=== PATIENT | female | born 1970 | race Caucasian/White ===

== ENCOUNTER 2022-04-09 10:07 | Outpatient (CLI) | payer BC, SELFPAY | END 2022-04-09 10:08 | disposition home or self-care (01) | PROVIDERS: Visit Provider Family Medicine | DX: M54.16 Radiculopathy, lumbar region (principal) | CPT/HCPCS: 64483; J1100; Q9966 ==

== ENCOUNTER 2022-07-30 09:25 | Outpatient (CLI) | payer BC, SELFPAY ==
--- OUTSIDE RECORDS SUMMARY | 2022-07-30 09:34 | XMS_ITS | Continuity of Care Document ---
Author Name Unknown Organization [facility] Address [address] [place] [address]- Care Team Providers Care Admitting Officer Name Role Phone Clyde Jaquez Primary Care Physician Encounter 03/05/21 - 03/05/21 [facility] [address] [place] [address]- Discharge Disposition: Discharged to Home or Self Care Attending Physician: Bindu METZGER, Linnette Nunez Allergies, Adverse Reactions, Alerts Substance Reaction Severity Status penicillins Active Medications atorvastatin 40 mg oral tablet Take 1 Tab, PO, Daily, # 90 Tab, 3 Refill(s), Pharmacy: [facility] Start Date: 12/18/20 Status: Ordered CONTOUR COLTEN NEXT CONTOUR COLTEN NEXT, testing 4-5, Each, 0 Start Date: 08/26/19 Status: Ordered fluconazole 150 mg oral tablet Take 1 Tab, PO, Once, take one tablet once a week for yeast infection while taking Jardiance, # 30 Tab, 11 Refill(s), Pharmacy: [facility] Start Date: 03/28/20 Status: Ordered Jardiance 10 mg oral tablet Take 1 Tab, PO, QAM, # 90 Each, 11 Refill(s), Pharmacy: [facility] Start Date: 05/01/20 Status: Ordered Linzess 72 mcg oral capsule Take 1 Cap, PO, Daily, Each, 0 Refill(s) Start Date: 08/26/19 Status: Ordered lisinopril 20 mg oral tablet Take 1 Tab, PO, Daily, # 90 Each, 3 Refill(s), Pharmacy: [facility] Start Date: 10/02/20 Status: Ordered NovoLOG 100 units/mL injectable solution See Instructions, Subcut ac via pump max 75 units per day, # 3 Each, 11 Refill(s), [facility] Start Date: 05/01/20 Status: Ordered topiramate 25 mg oral tablet TAKE ONE TABLET BY MOUTH TWICE A DAY EVERY MORNING AND EVERY EVENING Start Date: 05/01/20 Status: Ordered Procedures Procedure Date Related Diagnosis Body Site Status Hysterectomy 1 Completed 1partial Results Laboratory List Name Date Basic Metabolic Panel (BASIC METABOLIC P NL) 03/05/21 CBC 03/05/21 Sodium Level Most recent to oldest [Reference Range]: 1 Sodium Level [133-146 mMol/L] 138 mMol/L (03/05/21 3:15 PM) Potassium Level Most recent to oldest [Reference Range]: 1 Potassium Level [3.5-5.1 mMol/L] 4.5 mMo l/L (03/05/21 3:15 PM) Chloride Level Most recent to oldest [Reference Range]: 1 Chloride Level [97-109 mMol/L] 104 mMol/ L (03/05/21 3:15 PM) Carbon Dioxide Level Most recent to oldest [Reference Range]: 1 Carbon Dioxide Level [20-34 mMol/L] 25 m Mol/L (03/05/21 3:15 PM) BUN Most recent to oldest [Reference Range]: 1 BUN [8-22 mg/dL] 15 mg/dL (03/05/21 3:15 PM) Creatinine Most recent to oldest [Reference Range]: 1 Creatinine [0.6-1.2 mg/dL] 0.65 mg/dL (03/05/21 3:15 PM) Calcium Total Most recent to oldest [Reference Range]: 1 Calcium Total [8.6-10.3 mg/dL] 9.1 mg/dL (03/05/21 3:15 PM) Glucose Level Most recent to oldest [Reference Range]: 1 Glucose Level [70-110 mg/dL] 82 mg/dL (03/05/21 3:15 PM) WBC Count Most recent to oldest [Reference Range]: 1 WBC Count [4.5-11.0 X10 3/uL] 10.07 X10 3/uL (03/05/21 3:15 PM) Hemoglobin Most recent to oldest [Reference Range]: 1 Hemoglobin [11.7-16.0 gm/dL] 14.2 gm/dL (03/05/21 3:15 PM) Hematocrit Most recent to oldest [Reference Range]: 1 Hematocrit [35-47 %] 42.9 % (03/05/21 3:15 PM) Platelet Count Most recent to oldest [Reference Range]: 1 Platelet Count [150-440 X10 3/uL] 326 X1 0 3/uL (03/05/21 3:15 PM) Social History Social History Type Response Sex
--- OUTSIDE RECORDS SUMMARY | 2022-07-30 09:34 | XMS_ITS | Continuity of Care Document ---
Author Name Unknown Organization [facility] Address [address] [place] [address]- Care Team Providers Care Eyeglass Maker Name Role Phone Clyde Jaquez Primary Care Physician [phone] Encounter 04/19/21 - 04/19/21 [facility] [address] [place] [address]- Discharge Disposition: Discharged to Home or Self Care Attending Physician: Carroll KIRKLAND, Leo Edgar Allergies, Adverse Reactions, Alerts Substance Reaction Severity Status erythromycin nausea Active penicillins Active Immunizations Given and Recorded Vaccine Date Status Refusal Reason SARS-CoV-2 (COVID-19) MODERNA 02/22/21 Recorded SARS-CoV-2 (COVID-19) MODERNA 05/16/20 Recorded SARS-CoV-2 (COVID-19) MODERNA 04/17/20 Recorded influenza virus vaccine 01/27/20 Recorded influenza virus vaccine 01/25/19 Recorded influenza virus vaccine 02/20/18 Recorded influenza virus vaccine 03/07/17 Recorded influenza virus vaccine 01/03/16 Recorded influenza virus vaccine 05/05/15 Recorded influenza virus vaccine 01/20/13 Recorded influenza virus vaccine 02/20/11 Recorded tetanus-diphtheria toxoids 02/21/05 Recorded measles/mumps/rubella virus vaccine 03/08/87 Recor ded Medications atorvastatin 40 mg oral tablet Take 1 Tab, PO, Daily, # 90 Tab, 3 Refill(s), [facility] Start Date: 12/18/20 Status: Ordered CONTOUR COLTEN NEXT CONTOUR COLTEN NEXT, testing 4-5, Each, 0 Start Date: 08/26/19 Status: Ordered fluconazole 150 mg oral tablet Take 1 Tab, PO, Once, take one tablet once daily as needed for yeast infection while taking Jardiance 5 days in succession Max 10 days/month, # 30 Tab, 11 Refill(s), Pharmacy: [facility], 173, cm, 03/19/21 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, Height, 99.7, kg, 03/19/21 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, Weight Start Date: 03/22/21 Status: Ordered Linzess 72 mcg oral capsule Take 1 Cap, PO, Daily, Each, 0 Refill(s) Start Date: 08/26/19 Status: Ordered lisinopril 20 mg oral tablet Take 1 Tab, PO, Daily, # 90 Each, 3 Refill(s), Pharmacy: [facility] Start Date: 10/02/20 Status: Ordered NovoLOG 100 units/mL injectable solution See Instructions, Subcut ac via pump max 75 units per day, # 3 Each, 11 Refill(s), Pharmacy: [facility], 173, cm, 03/19/21 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, Height, 99.7, kg, 03/19/21 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, Weight Start Date: 03/22/21 Status: Ordered topiramate 25 mg oral tablet Take 1 Tab, PO, QPM Start Date: 05/01/20 Status: Ordered topiramate 50 mg oral tablet Take 1 Tab, PO, Daily, AM, Each Start Date: 03/12/21 Status: Ordered Problem List Condition Effective Dates Status Health Status Inform ant Diabetes(Confirmed) Active patie nt Procedures Procedure Date Related Diagnosis Body Site Status Coronary angiogram 1 03/19/21 Comp leted Left ventriculogram 2 03/19/21 Com pleted delivery Complet ed Cyst 3 Completed Hysterectomy 4 Completed 1Mynx used for right femoral artery hemostasis 2Mynx used for right femoral artery hemostasis 3L. wrist 4partial Social History Social History Type Response Smoking Status Never smoked Sex Medical Equipment Implanted Date:03/19/21Target Site:Unknown Description Quantity MRI Company Model DEVICE VASC CLOSURE MYNX VCD 6F 7F [id number] 1 [facility]- ACCES S CLOSURE Unknown JOEL:{[id number] Assigning Authority:FDA
--- OUTSIDE RECORDS SUMMARY | 2022-07-30 09:34 | XMS_ITS | Referral Summary ---
Author Name Unknown Organization [facility] Address [address] [place] [address]- Care Team Providers Care Engineer Steam Name Role Phone Clyde Jaquez Primary Care Physician Az Adamson Primary Care Physician [phone] Monserrat Polanco Primary Care Physician Clyde Jaquez Primary Care Physician Monserrat Polanco Primary Care Physician [phone] Clyde Jaquez Primary Care Physician Physician, PCP Unknown Primary Care Physician Un available Clyde Jaquez Primary Care Physician [phone] Physician, PCP Unknown Primary Care Physician Un available Encounter 07/03/17 - 07/03/17 [facility] [address] [place] [address]- [facility] Discharge Disposition: Discharged to Home or Self Care Attending Physician: Clyde Jaquez MD Allergies, Adverse Reactions, Alerts Substance Reaction Severity Status penicillins Active Medications aspirin Each, 0 Refill(s) Start Date: 05/26/14 Status: Ordered Belviq 10 mg oral tablet Take 1 Tab, PO, Each, 0 Refill(s) Start Date: 05/26/14 Status: Ordered Linzess 145 mcg oral capsule Take 1 Cap, PO, Daily, Each, 0 Refill(s) Start Date: 05/26/14 Status: Ordered lisinopril 20 mg oral tablet Take 1 Tab, PO, Daily, # 30 Tab, 0 Refill(s) Start Date: 05/26/14 Status: Ordered phentermine PO, Each, 0 Refill(s) Start Date: 05/26/14 Status: Ordered simvastatin 40 mg oral tablet Take 1 Tab, PO, QBedtime, # 30 Tab, 0 Refill(s) Start Date: 05/26/14 Status: Ordered Topamax 50 mg oral tablet Take 1 Tab, PO, Daily, Each, 0 Refill(s) Start Date: 05/26/14 Status: Ordered Procedures Procedure Date Related Diagnosis Body Site Status Hysterectomy 1 Completed 1partial Social History Social History Type Response
--- OUTSIDE RECORDS SUMMARY | 2022-07-30 09:34 | XMS_ITS | Continuity of Care Document ---
Author Name Unknown Organization [facility] Address [address] [place] [address]- Care Team Providers Care Education Professional Name Role Phone Clyde Jaquez Primary Care Physician Encounter 09/10/19 - 09/10/19 [facility] [address] [place] [address]- [facility] Discharge Disposition: Discharged to Home or Self Care Attending Physician: Antolin KIRKLAND, Alicia Thompson Allergies, Adverse Reactions, Alerts Substance Reaction Severity Status penicillins Active Medications aspirin 81 mg, PO, Daily, Each, 0 Refill(s) Start Date: 05/26/14 Status: Ordered atorvastatin 40 mg oral tablet Take 1 Tab, PO, Daily, # 90 Tab, 0 Refill(s), Pharmacy: [facility] Start Date: 08/26/19 Status: Ordered CONTOUR COLTEN NEXT CONTOUR COLTEN NEXT, testing 4-5, Each, 0 Start Date: 08/26/19 Status: Ordered fluconazole 150 mg oral tablet Take 1 Tab, PO, Once, take one tablet once a week for yeast infection while taking Jardiance, # 30 Tab, 0 Refill(s), Pharmacy: [facility] Start Date: 09/07/19 Status: Ordered Jardiance 10 mg oral tablet Take 1 Tab, PO, QAM, # 90 Each, 11 Refill(s), Pharmacy: [facility] Start Date: 08/26/19 Status: Ordered Linzess 72 mcg oral capsule Take 1 Cap, PO, Daily, Each, 0 Refill(s) Start Date: 08/26/19 Status: Ordered lisinopril 20 mg oral tablet Take 1 Tab, PO, Daily, # 90 Each, 11 Refill(s), Pharmacy: [facility] Start Date: 08/26/19 Status: Ordered NovoLOG 100 units/mL injectable solution See Instructions, Subcut ac via pump max75 units per day, # 3 Each, 11 Refill(s), Pharmacy: [facility] Start Date: 08/26/19 Status: Ordered phentermine 37.5 mg, PO, Daily, Each, 0 Refill(s) Start Date: 05/26/14 Status: Ordered Topamax 50 mg oral tablet Take 1 Tab, PO, Daily, # 30 Each, 2 Refill(s), Pharmacy: [facility], 1 Tab PO Daily Start Date: 09/07/19 Status: Ordered Procedures Procedure Date Related Diagnosis Body Site Status Hysterectomy 1 Completed 1partial Social History Social History Type Response Sex
--- OUTSIDE RECORDS SUMMARY | 2022-07-30 09:34 | XMS_ITS | Continuity of Care Document ---
Author Name Unknown Organization [facility] Address [address] [place] [address]- Care Team Providers Care Tenter Feeder Name Role Phone Clyde Jaquez Primary Care Physician Encounter 02/12/21 - 02/12/21 [facility] [address] [place] [address]- Encounter Diagnosis Chest pain, unspecified(Final) - Discharge Disposition: Discharged to Home or Self Care Attending Physician: Antolin KIRKLAND, Alicia Thompson Allergies, Adverse Reactions, Alerts Substance Reaction Severity Status penicillins Active Medications atorvastatin 40 mg oral tablet Take 1 Tab, PO, Daily, # 90 Tab, 3 Refill(s), Pharmacy: [facility] Start Date: 12/18/20 Status: Ordered CONTOUR COLTEN NEXT CONTOUR COLTEN NEXT, testing 4-5, Each, 0 Start Date: 08/26/19 Status: Ordered fluconazole 150 mg oral tablet Take 1 Tab, PO, Once, take one tablet once a week for yeast infection while taking Jardiance, # 30 Tab, 11 Refill(s), Pharmacy: [facility] Start Date: 03/28/20 Status: Ordered Jardiance 10 mg oral tablet Take 1 Tab, PO, QAM, # 90 Each, 11 Refill(s), Pharmacy: [facility] Start Date: 05/01/20 Status: Ordered Linzess 72 mcg oral capsule Take 1 Cap, PO, Daily, Each, 0 Refill(s) Start Date: 08/26/19 Status: Ordered lisinopril 20 mg oral tablet Take 1 Tab, PO, Daily, # 90 Each, 3 Refill(s), Pharmacy: [facility] Start Date: 10/02/20 Status: Ordered NovoLOG 100 units/mL injectable solution See Instructions, Subcut ac via pump max 75 units per day, # 3 Each, 11 Refill(s), Pharmacy: [facility] Start Date: 05/01/20 Status: Ordered topiramate 25 mg oral tablet TAKE ONE TABLET BY MOUTH TWICE A DAY EVERY MORNING AND EVERY EVENING Start Date: 05/01/20 Status: Ordered Procedures Procedure Date Related Diagnosis Body Site Status Hysterectomy 1 Completed 1partial Social History Social History Type Response Sex
--- OUTSIDE RECORDS SUMMARY | 2022-07-30 09:34 | XMS_ITS | Continuity of Care Document ---
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
--- OUTSIDE RECORDS SUMMARY | 2022-07-30 09:34 | XMS_ITS | Continuity of Care Document ---
Author Name Unknown Organization [facility] Address [address] [place] [address]- Care Team Providers Care Cement Kiln Operator Name Role Phone Clyde Jaquez Primary Care Physician [phone] Encounter 03/17/21 - 03/17/21 [facility] [address] [place] [address]- Discharge Disposition: Discharged to Home or Self Care Attending Physician: Aminah Dey DO Allergies, Adverse Reactions, Alerts Substance Reaction Severity [...] Daily, # 90 Tab, 3 Refill(s), Pharmacy: [facility] Start Date: 12/18/20 Status: Ordered CONTOUR COLTEN NEXT CONTOUR COLTEN NEXT, testing 4-5, Each, 0 Start Date: 08/26/19 Status: Ordered fluconazole 150 mg oral tablet Take 1 Tab, PO, Once, take one tablet once a week for yeast infection while taking Jardiance, # 30 Tab, 11 Refill(s), Pharmacy: [facility] Start Date: 03/28/20 Status: Ordered Jardiance 10 mg oral tablet Take 1 Tab, PO, QAM, # 90 Each, 11 Refill(s), Pharmacy: [facility] Start Date: 05/01/20 Status: Ordered Linzess 72 mcg oral capsule Take 1 Cap, PO, Daily, Each, 0 Refill(s) Start Date: 08/26/19 Status: Ordered lisinopril 20 mg oral tablet Take 1 Tab, PO, Daily, # 90 Each, 3 Refill(s), Pharmacy: [facility] Start Date: 10/02/20 Status: Ordered NovoLOG 100 units/mL injectable solution See Instructions, Subcut ac via pump max 75 units per day, # 3 Each, 11 Refill(s), Pharmacy: [facility] Start Date: 05/01/20 Status: Ordered topiramate 25 mg oral tablet Take 1 Tab, PO, QPM, TAKE ONE TABLET BY MOUTH TWICE A DAY EVERY MORNING AND EVERY EVENING Start Date: 05/01/20 Status: Ordered topiramate 50 mg oral tablet Take 1 Tab, PO, Daily, AM, Each Start Date: 03/12/21 Status: Ordered Problem List Condition Effective Dates Status Health Status Inform ant Diabetes(Confirmed) Active patie nt Procedures Procedure Date Related Diagnosis Body Site Status delivery Complet ed Cyst 1 Completed Hysterectomy 2 Completed 1L. wrist 2partial Results Laboratory List Name Date Coronavirus (COVID-19/SARS-C oV-2) Addl Ref Lab (Coronavirus (COVID-19/SARS-CoV-2) Addl R) 03/17/21 SARS-CoV-2 Most recent to oldest [Reference Range]: 1 SARS-CoV-2 [NEG] NEGATIVE 1 (03/17/21 9:37 AM) 1Result Comment: The [employer] SARS-CoV-2 Reagents for [employer] System is a real-time RT-PCR test intended for the qualitative detection of nucleic acid from the SARS-CoV-2 virus. THIS ASSAY IS FOR IN VITRO DIAGNOSTIC USE UNDER FDA EMERGENCY USE AUTHORIZATION ONLY. Social History Social History Type Response Smoking Status Never smoked Sex
--- OUTSIDE RECORDS SUMMARY | 2022-07-30 09:34 | XMS_ITS | Continuity of Care Document ---
Author Name Unknown Organization [facility] Address [address] [place] [address]- Care Team Providers Care Cafeteria Table Attendant Name Role Phone Clyde Jaquez Primary Care Physician Encounter 08/27/19 - 08/27/19 [facility] [address] [place] [address]- [facility] Discharge Disposition: Discharged to Home or Self Care Attending Physician: Clyde Jaquez MD Allergies, Adverse Reactions, Alerts Substance Reaction Severity Status penicillins Active Medications aspirin 81 mg, PO, Daily, Each, 0 Refill(s) Start Date: 05/26/14 Status: Ordered atorvastatin 40 mg oral tablet Take 1 Tab, PO, Daily, # 90 Tab, 0 Refill(s), Pharmacy: [facility] Start Date: 08/26/19 Status: Ordered CONTOUR COLTEN NEXT CONTOUR COLTEN NEXT, testing 4-5, Each, 0 Start Date: 08/26/19 Status: Ordered Jardiance 10 mg oral tablet Take 1 Tab, PO, QAM, # 90 Each, 11 Refill(s), Pharmacy: [facility] Start Date: 08/26/19 Status: Ordered Linzess 72 mcg oral capsule Take 1 Cap, PO, Daily, Each, 0 Refill(s) Start Date: 08/26/19 Status: Ordered lisinopril 20 mg oral tablet Take 1 Tab, PO, Daily, # 90 Each, 11 Refill(s), Pharmacy: [facility] Start Date: 08/26/19 Status: Ordered NovoLOG 100 units/mL injectable solution See Instructions, Subcut ac via pump max75 units per day, # 3 Each, 11 Refill(s), Pharmacy: [facility] Start Date: 08/26/19 Status: Ordered [...]
--- OUTSIDE RECORDS SUMMARY | 2022-07-30 09:34 | XMS_ITS | Continuity of Care Document ---
Author Name Unknown Organization [facility] Address [address] [place] [address]- Care Team Providers Care Metal Spinner Name Role Phone Clyde Jaquez Primary Care Physician Encounter 03/19/21 - 03/19/21 [facility] [address] [place] [address]- Discharge Disposition: Discharged to Home or Self Care Attending Physician: Jad Colon DO Allergies, Adverse Reactions, Alerts Substance Reaction Severity Status erythromycin nausea Active penicillins Active Assessment and Plan Extracted from: Title:Dr. Ruano Author:Andi GODWIN, Julisa Eller Date :03/12/21 HISTORY & PHYSICAL Immunizations Given and Recorded Vaccine Date Status [...] Daily, # 90 Tab, 3 Refill(s), Pharmacy: [facility] Start Date: 12/18/20 Status: Ordered CONTOUR COLTEN NEXT CONTOUR COLTEN NEXT, testing 4-5, Each, 0 Start Date: 08/26/19 Status: Ordered fluconazole 150 mg oral tablet Take 1 Tab, PO, Once, take one tablet once a week for yeast infection while taking Jardiance, # 30 Tab, 11 Refill(s), Pharmacy: [facility] Start Date: 03/28/20 Status: Ordered Jardiance 10 mg oral tablet Take 1 Tab, PO, QAM, # 90 Each, 11 Refill(s), Pharmacy: [facility] Start Date: 05/01/20 Status: Ordered Linzess 72 mcg oral capsule Take 1 Cap, PO, Daily, Each, 0 Refill(s) Start Date: 08/26/19 Status: Ordered lisinopril 20 mg oral tablet Take 1 Tab, PO, Daily, # 90 Each, 3 Refill(s), Pharmacy: [facility] Start Date: 10/02/20 Status: Ordered NovoLOG 100 units/mL injectable solution See Instructions, Subcut ac via pump max 75 units per day, # 3 Each, 11 Refill(s), Pharmacy: [facility] Start Date: 05/01/20 Status: Ordered predniSONE 20 mg oral tablet Take 1 Tab, PO, Daily, # 7 Tab, 0 Refill(s) Start Date: 03/19/21 Stop Date: 03/26/21 Status: Ordered topiramate 25 mg oral tablet Take 1 Tab, PO, QPM, TAKE ONE TABLET BY MOUTH TWICE A DAY EVERY MORNING AND EVERY EVENING Start Date: 05/01/20 Status: Ordered topiramate 50 mg oral tablet Take 1 Tab, PO, Daily, AM, Each Start Date: 03/12/21 Status: Ordered Mental Status 03/19/21 Level of Consciousness-CAM Alert Orientation-CAM Oriented x 4 Cognitive-CAM Judgment sound Memory-CAM Intact/Present Behavior/Mood/Affect-CAM Appropriate, Calm, Cooperative Problem List Condition Effective Dates Status Health Status Inform ant Diabetes(Confirmed) Active patie nt Procedures Procedure Date Related Diagnosis Body Site Status Coronary angiogram 1 03/19/21 Comp leted Left ventriculogram 2 03/19/21 Com pleted delivery Complet ed Cyst 3 Completed Hysterectomy 4 Completed 1Mynx used for right femoral artery hemostasis 2Mynx used for right femoral artery hemostasis 3L. wrist 4partial Vital Signs Most recent to oldest [Reference Range]: 1 Respiratory Rate [12-18 Br PM] 12 Br PM (03/19/21 12:00 PM) Pulse Rate [60-100 BPM] 79 BPM (03/19/21 12:00 PM) Pulse Oximetry [90-100 %] 100 % (03/19/21 12:00 PM) Blood Pressure [90-140/65-90 mmHg] 115/5 9mmHg (03/19/21 12:00 PM) Temperature Celsius Calculation 36.8 Deg jose miguel C (03/19/21 9:30 AM) Height 173 cm (03/19/21 6:48 AM) Weight 99.7 kg (03/19/21 6:48 AM) Body Mass Index 33.3 kg/m2 (03/19/21 6:48 AM) Social History Social History Type Response Smoking Status Never smoked Sex Medical Equipment Implanted Date:03/19/21Target Site:Unknown Description Quantity MRI Company Model DEVICE VASC CLOSURE MYNX VCD 6F 7F [id number] 1 [facility]- ACCES S CLOSURE Unknown JOEL:{[id number] Assigning Authority:FDA
--- OUTSIDE RECORDS SUMMARY | 2022-07-30 09:34 | XMS_ITS | Continuity of Care Document ---
Author Name Unknown Organization [facility] Address [address] [place] [address]- Care Team Providers Care Certified Driver Examiner Name Role Phone Clyde Jaquez Primary Care Physician Encounter 03/22/21 - 03/22/21 [facility] [address] [place] [address]- Discharge Disposition: Discharged to Home or Self Care Attending Physician: Addi METZGER, Raymond Mchugh Allergies, Adverse Reactions, Alerts Substance Reaction Severity [...] Daily, # 90 Tab, 3 Refill(s), Pharmacy: [facility] Start Date: 12/18/20 Status: Ordered CONTOUR COLTEN NEXT CONTOUR COLTEN NEXT, testing 4-5, Each, 0 Start Date: 08/26/19 Status: Ordered fluconazole 150 mg oral tablet Take 1 Tab, PO, Once, take one tablet once a week for yeast infection while taking Jardiance, # 30 Tab, 11 Refill(s), Pharmacy: [facility] Start Date: 03/28/20 Status: Ordered Jardiance 10 mg oral tablet Take 1 Tab, PO, QAM, # 90 Each, 11 Refill(s), Pharmacy: [facility], 173, cm, 03/19/21 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, Height, 99.7, kg, 03/19/21 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, Weight Start Date: 03/22/21 Status: Ordered Linzess 72 mcg oral capsule Take 1 Cap, PO, Daily, Each, 0 Refill(s) Start Date: 08/26/19 Status: Ordered lisinopril 20 mg oral tablet Take 1 Tab, PO, Daily, # 90 Each, 3 Refill(s), Pharmacy: [facility] Start Date: 10/02/20 Status: Ordered NovoLOG 100 units/mL injectable solution See Instructions, Subcut ac via pump max 75 units per day, # 3 Each, 11 Refill(s), Pharmacy: [facility], 173, cm, 03/19/21 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, Height, 99.7, kg, 03/19/21 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, Weight Start Date: 03/22/21 Status: Ordered topiramate [...] DEVICE VASC CLOSURE MYNX VCD 6F 7F [id number] 1 CARDINAL HLTH- ACCES S CLOSURE Unknown JOEL:{[id number] Assigning Authority:FDA
--- OUTSIDE RECORDS SUMMARY | 2022-07-30 09:34 | XMS_ITS | Continuity of Care Document ---
Author Name Unknown Organization [facility] Address [address] [place] [address]- Care Team Providers Care Fabrication Specialist Name Role Phone Clyde Jaquez Primary Care Physician Encounter 10/28/19 - 10/29/19 [facility] [address] [place] [address]- [facility] Discharge Disposition: Discharged to Home or Self Care Attending Physician: Silas Hamlin MD Allergies, Adverse Reactions, Alerts Substance Reaction Severity Status penicillins Active Medications aspirin 81 mg, PO, Daily, Each, 0 Refill(s) Start Date: 05/26/14 Status: Ordered atorvastatin 40 mg oral tablet Take 1 Tab, PO, Daily, # 90 Tab, 0 Refill(s), Pharmacy: [facility] Start Date: 08/26/19 Status: Ordered CONTOUR COLTEN NEXT CONTOUR COLTEN NEXT, testing 4-5, Each, 0 Start Date: 08/26/19 Status: Ordered fluconazole 150 mg oral tablet Take 1 Tab, PO, Once, take one tablet once a week for yeast infection while taking Jardiance, # 30 Tab, 0 Refill(s), Pharmacy: [facility] Start Date: 09/07/19 Status: Ordered Jardiance 10 mg oral tablet Take 1 Tab, PO, QAM, # 90 Each, 11 Refill(s), Pharmacy: [facility] Start Date: 08/26/19 Status: Ordered Linzess 72 mcg oral capsule Take 1 Cap, PO, Daily, Each, 0 Refill(s) Start Date: 08/26/19 Status: Ordered lisinopril 20 mg oral tablet Take 1 Tab, PO, Daily, # 90 Each, 11 Refill(s), Pharmacy: [facility] Start Date: 08/26/19 Status: Ordered NovoLOG 100 units/mL injectable solution See Instructions, Subcut ac via pump max75 units per day, # 3 Each, 11 Refill(s), Pharmacy: [facility] Start Date: 08/26/19 Status: Ordered phentermine 37.5 mg, PO, Daily, Each, 0 Refill(s) Start Date: 05/26/14 Status: Ordered Topamax 50 mg oral tablet Take 1 Tab, PO, Daily, # 30 Each, 2 Refill(s), Pharmacy: [facility], 1 Tab PO Daily Start Date: 09/07/19 Status: Ordered Procedures Procedure Date Related Diagnosis Body Site Status Hysterectomy 1 Completed 1partial Social History Social History Type Response Sex
--- OUTSIDE RECORDS SUMMARY | 2022-07-30 09:34 | XMS_ITS | Continuity of Care Document ---
Author Name Unknown Organization [facility] Address [address] [place] [address]- Care Team Providers Care Visual Effects Editor Name Role Phone Clyde Jaquez Primary Care Physician Encounter 12/11/20 - 12/11/20 [place] [address] [place] [address]- Encounter Diagnosis Chest pain, unspecified(Final) - Discharge Disposition: Discharged to Home or Self Care Attending Physician: Antolin KIRKLAND, Alicia Thompson Allergies, Adverse Reactions, Alerts Substance Reaction Severity Status penicillins Active Medications atorvastatin 40 mg oral tablet Take 1 Tab, PO, Daily, # 90 Tab, 3 Refill(s), Pharmacy: [facility] Start Date: 12/09/19 Status: Ordered CONTOUR COLTEN NEXT CONTOUR COLTEN NEXT, testing 4-5, Each, 0 Start Date: 08/26/19 Status: Ordered fluconazole 150 mg oral tablet Take 1 Tab, PO, Once, take one tablet once a week for yeast infection while taking Jardiance, # 30 Tab, 11 Refill(s), Pharmacy: [facility] Start Date: 03/28/20 Status: Ordered Jardiance 10 mg oral tablet Take 1 Tab, PO, QAM, # 90 Each, 11 Refill(s), Pharmacy: [facility] Start Date: 05/01/20 Status: Ordered Linzess 72 mcg oral capsule Take 1 Cap, PO, Daily, Each, 0 Refill(s) Start Date: 08/26/19 Status: Ordered lisinopril 20 mg oral tablet Take 1 Tab, PO, Daily, # 90 Each, 3 Refill(s), Pharmacy: [facility] Start Date: 10/02/20 Status: Ordered NovoLOG 100 units/mL injectable solution See Instructions, Subcut ac via pump max 75 units per day, # 3 Each, 11 Refill(s), Pharmacy: [facility] Start Date: 05/01/20 Status: Ordered topiramate 25 mg oral tablet TAKE ONE TABLET BY MOUTH TWICE A DAY EVERY MORNING AND EVERY EVENING Start Date: 05/01/20 Status: Ordered Procedures Procedure Date Related Diagnosis Body Site Status Hysterectomy 1 Completed 1partial Results Laboratory List Name Date Basic Metabolic Panel (BASIC METABOLIC P NL) 12/11/20 Sodium Level Most recent to oldest [Reference Range]: 1 Sodium Level [133-146 mMol/L] 136 mMol/L (12/11/20 11:39 AM) Potassium Level Most recent to oldest [Reference Range]: 1 Potassium Level [3.5-5.1 mMol/L] 4.2 mMo l/L (12/11/20 11:39 AM) Chloride Level Most recent to oldest [Reference Range]: 1 Chloride Level [97-109 mMol/L] 104 mMol/ L (12/11/20 11:39 AM) Carbon Dioxide Level Most recent to oldest [Reference Range]: 1 Carbon Dioxide Level [20-34 mMol/L] 25 m Mol/L (12/11/20 11:39 AM) BUN Most recent to oldest [Reference Range]: 1 BUN [8-22 mg/dL] 15 mg/dL (12/11/20 11:39 AM) Creatinine Most recent to oldest [Reference Range]: 1 Creatinine [0.6-1.2 mg/dL] 0.80 mg/dL (12/11/20 11:39 AM) Calcium Total Most recent to oldest [Reference Range]: 1 Calcium Total [8.6-10.3 mg/dL] 9.4 mg/dL (12/11/20 11:39 AM) Glucose Level Most recent to oldest [Reference Range]: 1 Glucose Level [70-110 mg/dL] 141 mg/dL *HI* (12/11/20 11:39 AM) Social History Social History Type Response Sex
--- OUTSIDE RECORDS SUMMARY | 2022-07-30 09:34 | XMS_ITS | Referral Summary ---
Author Name Unknown Organization [facility] Address [address] [place] [address]- Care Team Providers Care Manager Coding Name Role Phone JaquezMarcyClyde Rosalind Primary Care Physician [phone] Encounter 04/04/17 - 04/04/17 [facility] [address] [place] [address]- [facility] Discharge Disposition: Discharged to Home or Self Care Attending Physician: Carin METZGER, Biju Collier Allergies, Adverse Reactions, Alerts Substance Reaction Severity [...] Procedures Procedure Date Related Diagnosis Body Site Hysterectomy 1 1partial Social History Social History Type Response
--- OUTSIDE RECORDS SUMMARY | 2022-07-30 09:34 | XMS_ITS | Continuity of Care Document ---
Author Name Unknown Organization [facility] Address [address] [place] [address]- Care Team Providers Care Pawn Shop Keeper Name Role Phone Physician, PCP Unknown Primary Care Physician Un available Encounter 12/13/21 - 12/13/21 [facility] [address] [place] [address]- Discharge Disposition: Discharged to Home or Self Care Attending Physician: Raymond Fontana MD Allergies, Adverse Reactions, Alerts Substance Reaction [...] 90 Tab, 3 Refill(s), Pharmacy: [facility] Start Date: 12/18/20 Status: Ordered CONTOUR COLTEN NEXT CONTOUR COLTEN NEXT, testing 4-5, Each, 0 Start Date: 08/26/19 Status: Ordered fluconazole 150 mg oral tablet Take 1 Tab, PO, Once, take one tablet once daily as needed for yeast infection while taking Jardiance 5 days in succession Max 10 days/month, # 30 Tab, 11 Refill(s), [facility], [facility], 03/19/21 6:48:00 WASTE ELIMINATION, Height, 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 Start Date: 04/09/21 Status: Ordered Jardiance 10 mg oral tablet Take 1 Tab, PO, QAM, # 90 Each, 11 Refill(s), [facility], cm, 03/19/21 6:48:00 WASTE ELIMINATION, Height, 99.7, kg, 03/19/21 6:48:00 WASTE ELIMINATION, Weight Start Date: 12/13/21 Status: Ordered Linzess 72 mcg oral capsule Take 1 Cap, PO, Daily, Each, 0 Refill(s) Start Date: 08/26/19 Status: Ordered lisinopril 20 mg oral tablet Take 1 Tab, PO, Daily, # 90 Each, 3 Refill(s), Pharmacy: [facility] Start Date: 10/02/20 Status: Ordered NovoLOG 100 units/mL injectable solution See Instructions, Subcut ac via pump max 75 units per day, # 3 Each, 11 Refill(s), Pharmacy: [facility], 173, cm, 03/19/21 6:48:00 WASTE ELIMINATION, Height, 99.7, kg, 03/19/21 6:48:00 WASTE ELIMINATION, Weight Start Date: 12/13/21 Status: Ordered topiramate 25 mg oral tablet [...] DEVICE VASC CLOSURE MYNX VCD 6F 7F [id number] 1 CARDINAL HLTH- ACCES S CLOSURE Unknown JOEL:{[id number] Assigning Authority:FDA
--- OUTSIDE RECORDS SUMMARY | 2022-07-30 09:34 | XMS_ITS | Continuity of Care Document ---
Author Name Unknown Organization [facility] Address [address] [place] [address]- Care Team Providers Care Turnstile Attendant Name Role Phone Jonelle Stanford Primary Care Physician [phone] Encounter 05/15/22 - 05/15/22 [address] [place] [address]- Discharge Disposition: Discharged to Home or Self [...] Daily, # 90 Tab, 3 Refill(s), [facility] Start Date: 12/18/20 Status: Ordered CONTOUR COLTEN NEXT CONTOUR COLTEN NEXT, testing 4-5, Each, 0 Start Date: 08/26/19 Status: Ordered fluconazole 150 mg oral tablet Take 1 Tab, PO, Once, take one tablet once daily as needed for yeast infection while taking Jardiance 5 days in succession Max 10 days/month, # 30 Tab, 11 Refill(s), Pharmacy: [facility], 173, cm, 03/19/21 6:48:00 TAPE CALENDER, Height, 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 Start Date: 04/09/21 Status: Ordered Jardiance 10 mg oral tablet Take 1 Tab, PO, QAM, # 90 Each, 11 Refill(s), Pharmacy: [facility], 173, cm, 03/19/21 6:48:00 TAPE CALENDER, Height, 99.7, kg, 03/19/21 6:48:00 TAPE CALENDER, Weight Start Date: 12/13/21 Status: Ordered Linzess 72 mcg oral capsule Take 1 Cap, PO, Daily, Each, 0 Refill(s) Start Date: 08/26/19 Status: Ordered lisinopril 20 mg oral tablet Take 1 Tab, PO, Daily, # 90 Each, 3 Refill(s), Pharmacy: [facility] Start Date: 10/02/20 Status: Ordered NovoLOG 100 units/mL injectable solution See Instructions, Subcut ac via pump max 75 units per day, # 3 Each, 11 Refill(s), Pharmacy: [facility], 173, cm, 03/19/21 6:48:00 TAPE CALENDER, Height, 99.7, kg, 03/19/21 6:48:00 TAPE CALENDER, Weight Start Date: 12/13/21 Status: Ordered topiramate 25 mg oral tablet Take 1 Tab, PO, QPM Start Date: 05/01/20 Status: Ordered topiramate 50 mg oral tablet Take 1 Tab, PO, Daily, AM, Each Start Date: 03/12/21 Status: Ordered Wegovy (0.25 mg dose) subcutaneous solution 0.25 mg, Subcut, QSunday, updated, # 1 Each, 0 Refill(s), Pharmacy: [facility], 173, cm, 03/19/21 6:48:00 TAPE CALENDER, Height, 99.7, kg, 03/19/21 6:48:00 TAPE CALENDER, Weight Start Date: 05/15/22 Stop Date: 05/16/23 Status: Ordered Wegovy (0.5 mg dose) subcutaneous solution 0.5 mg, Subcut, QSunday, Start after completing 4 weeks of 0.25 mg, # 3 Each, 3 Refill(s), Pharmacy: [facility], 173, cm, 03/19/21 6:48:00 TAPE CALENDER, Height, 99.7, kg, 03/19/21 6:48:00 TAPE CALENDER, Weight Start Date: 05/15/22 Stop Date: 05/16/23 Status: Ordered Problem List Condition Confirmation Course Effective Dates Status Health St atus Informant Diabetes Confirmed Active patient Procedures Procedure Date Related Diagnosis Body Site Status Coronary angiogram 1 03/19/21 Comp leted Left ventriculogram 2 03/19/21 Com pleted delivery Complet ed Cyst 3 Completed Hysterectomy 4 Completed 1Mynx used for right femoral artery hemostasis 2Mynx used for right femoral artery hemostasis 3L. wrist 4partial Social History Social History Type Response Smoking Status Never smoked Sex Implantable Device List Procedure Provider Procedure Date Device Type Site Implantation Unknown 03/19/21 Non Biological Unknown Device Identifier Serial Number Lot or Batch Number Manufacturing Date Expiration Date Distinct Identification Code MRI Safety Implantable Status Assigning Authority [id number] Unknown [id number] Unknown 01/18/22 Unknown Unknown Active GS1 Patient Care team information Care Team Personnel Name: Hien KIRKLAND, Jonelle Eller Position: Allied Health Professional II Member Role: Primary Care Physician Address: Address: [facility] [address] [place], [place] [address]
--- OUTSIDE RECORDS SUMMARY | 2022-07-30 09:35 | XMS_ITS ---
Author Name Unknown Organization [facility] Address Unknown Care Team Providers Care Pain Management Nurse Name Role Phone Clyde Jaquez Primary Care Physician Encounter TRIN_HN Date(s): 02/19/22 - 02/19/22 [facility] [address] [place] [address] Encounter Diagnosis Encounter for screening mammogram for malignant neoplasm of breast(Final) - Discharge Disposition: Home or Self Care Attending Physician: Jonelle Stanford Admitting Physician: Jonelle Stanford Reason for Visit screening Allergies, Adverse Reactions, Alerts azithromycin penicillin Medications atorvastatin (atorvastatin 4 0 mg oral tablet) Status: Discontinued Start Date: 12/06/20 Stop Date: 12/06/20 1 tab(s) Oral every day. empagliflozin (Jardiance 10 mg oral tablet) Status: Discontinued Start Date: 12/06/20 Stop Date: 12/06/20 1 tab(s) Oral once a day (in the morning). fluconazole (fluconazole 150 mg oral tablet) Status: Discontinued Start Date: 12/06/20 Stop Date: 12/06/20 1 tab(s) Oral every week. insulin aspart (NovoLOG) Status: Discontinued Start Date: 12/06/20 Stop Date: 12/06/20 linaclotide (Linzess 72 mcg oral capsule) Status: Discontinued Start Date: 12/06/20 Stop Date: 12/06/20 1 Capsules Oral every day. lisinopril Status: Discontinued Start Date: 12/06/20 Stop Date: 12/06/20 20 Milligram Oral every day. topiramate (Topamax 25 mg or al tablet) Status: Discontinued Start Date: 12/06/20 Stop Date: 12/06/20 2 tab(s) Oral every day. Assessment and Plan Future Appointments ??
--- OUTSIDE RECORDS SUMMARY | 2022-07-30 09:35 | XMS_ITS | Continuity of Care Document ---
Author Name Unknown Organization [facility] Address [address] [place] [address]- Care Team Providers Care Sales And Service Consultant Name Role Phone Clyde Jaquez Primary Care Physician Encounter 03/29/21 - 03/29/21 [facility] [address] [place] [address]- Discharge Disposition: Discharged to Home or Self Care Attending Physician: Gisele METZGER, Clyde Boyer Allergies, Adverse Reactions, Alerts Substance Reaction Severity [...] Daily, # 90 Tab, 3 Refill(s), Pharmacy: [facility] Start Date: 12/18/20 Status: Ordered CONTOUR COLTEN NEXT CONTOUR COLTEN NEXT, testing 4-5, Each, 0 Start Date: 08/26/19 Status: Ordered fluconazole 150 mg oral tablet Take 1 Tab, PO, Once, take one tablet once a week for yeast infection while taking Jardiance, # 30 Tab, 11 Refill(s), Pharmacy: [facility] Start Date: 03/28/20 Status: Ordered Jardiance 10 mg oral tablet Take 1 Tab, PO, QAM, # 90 Each, 11 Refill(s), Pharmacy: [facility], 173, cm, 03/19/21 6:48:00 RESPIRATORY THERAPY INSTRUCTOR, Height, 99.7, kg, 03/19/21 6:48:00 RESPIRATORY THERAPY INSTRUCTOR, Weight Start Date: 03/22/21 Status: Ordered Linzess 72 mcg oral capsule Take 1 Cap, PO, Daily, Each, 0 Refill(s) Start Date: 08/26/19 Status: Ordered lisinopril 20 mg oral tablet Take 1 Tab, PO, Daily, # 90 Each, 3 Refill(s), Pharmacy: [facility] Start Date: 10/02/20 Status: Ordered NovoLOG 100 units/mL injectable solution See Instructions, Subcut ac via pump max 75 units per day, # 3 Each, 11 Refill(s), [facility], 173, cm, 03/19/21 6:48:00 RESPIRATORY THERAPY INSTRUCTOR, Height, 99.7, kg, 03/19/21 6:48:00 RESPIRATORY THERAPY INSTRUCTOR, Weight Start Date: 03/22/21 Status: Ordered topiramate [...] DEVICE VASC CLOSURE MYNX VCD 6F 7F [id number] 1 CARDINAL HLTH- ACCES S CLOSURE Unknown JOEL:{[id number] Assigning Authority:FDA
--- OUTSIDE RECORDS SUMMARY | 2022-07-30 09:35 | XMS_ITS ---
Author Name Unknown Organization [facility] Address Unknown Care Team Providers Care Steamship Agent Name Role Phone Jaquez, Clyde H Primary Care Physician Encounter TRIN_HN Date(s): 12/28/20 - 12/28/20 [facility] [address] [place] [address] Discharge Disposition: Home or Self Care Attending Physician: FAVIOLA MACEDO Admitting Physician: FAVIOLA MACEDO Reason for Visit CP Allergies, Adverse Reactions, Alerts azithromycin penicillin Medications [...]
--- OUTSIDE RECORDS SUMMARY | 2022-07-30 09:35 | XMS_ITS | Continuity of Care Document ---
Author Name Unknown Organization [facility] Address [address] [place] [address]- Care Team Providers Care Communications Supervisor Name Role Phone Clyde Jaquez Primary Care Physician [phone] Encounter 03/14/21 - 03/14/21 [facility] [address] [place] [address]- Discharge Disposition: Discharged to Home or Self [...] QAM, # 90 Each, 11 Refill(s), Pharmacy: [facility] Start Date: 05/01/20 Status: Ordered Linzess 72 [...] 3 Each, 11 Refill(s), Pharmacy: [facility] Start Date: 05/01/20 Status: Ordered topiramate 25 [...] Completed Hysterectomy 2 Completed 1L. wrist 2partial Social History Social History Type Response Smoking Status Never smoked Sex
--- OUTSIDE RECORDS SUMMARY | 2022-07-30 09:35 | XMS_ITS ---
Author Name Unknown Organization [facility] Address Unknown Care Team Providers Care Guest Advisor Name Role Phone Clyde Jaquez Primary Care Physician [phone] Encounter TRIN_HN Date(s): 12/06/20 - 12/06/20 [facility] [address] [place] [address] Encounter Diagnosis Chest pain of uncertain etiology(Discharge Diagnosis) - 12/06/20 Discharge Disposition: Home or Self Care Attending Physician: Charlene Lindo MD Admitting Physician: Charlene Lindo MD Reason for Visit CP Vital Signs 12/06/20 Temperature Tympanic 35.9 DegC*LOW* (Normal is 36.6-38.1 DegC) Peripheral Pulse Rate 72 bpm (Normal is 60-100 bpm) Peripheral Pulse Rate 67 bpm (Normal is 60-100 bpm) Peripheral Pulse Rate 72 bpm (Normal is 60-100 bpm) Peripheral Pulse Rate 80 bpm (Normal is 60-100 bpm) Peripheral Pulse Rate 76 bpm (Normal is 60-100 bpm) Peripheral Pulse Rate 86 bpm (Normal is 60-100 bpm) Peripheral Pulse Rate 89 bpm (Normal is 60-100 bpm) Respiratory Rate 16 br/min (Normal is 14-2 0 br/min) Respiratory Rate 16 br/min (Normal is 14-2 0 br/min) Respiratory Rate 20 br/min (Normal is 14-2 0 br/min) Respiratory Rate 12 br/min*LOW* (Normal is 14-2 0 br/min) Respiratory Rate 14 br/min (Normal is 14-2 0 br/min) Respiratory Rate 16 br/min (Normal is 14-2 0 br/min) Respiratory Rate 18 br/min (Normal is 14-2 0 br/min) Blood Pressure 138/67mmHg (Normal is 90-14 0/65-90 mmHg) Blood Pressure 151/68mmHg (Normal is 90-14 0/65-90 mmHg) Blood Pressure 142/72mmHg (Normal is 90-14 0/65-90 mmHg) Blood Pressure 138/68mmHg (Normal is 90-14 0/65-90 mmHg) Blood Pressure 137/70mmHg (Normal is 90-14 0/65-90 mmHg) Blood Pressure 144/75mmHg (Normal is 90-14 0/65-90 mmHg) Blood Pressure 136/67mmHg (Normal is 90-14 0/65-90 mmHg) Mean Arterial Pressure, Cuff 96 mmHg Mean Arterial Pressure, Cuff 95 mmHg Mean Arterial Pressure, Cuff 91 mmHg Mean Arterial Pressure, Cuff 92 mmHg Mean Arterial Pressure, Cuff 98 mmHg Problem List Chest pain of uncertain etiology(This Visit) Allergies, Adverse Reactions, Alerts azithromycin penicillin Medications aspirin Status: Completed Start Date: 12/06/20 Stop Date: 12/06/20 324 Milligram Chewed once. Refills: 0. atorvastatin (atorvastatin 4 0 mg oral tablet) [...] Date: 12/06/20 20 Milligram Oral every day. sodium chloride (Normal Sali ne Flush) Status: Discontinued Start Date: 12/06/20 Stop Date: 12/06/20 10 Milliliter Intravenous Flush Every 12 hours scheduled time for 30 Days. Refills: 0. sodium chloride (Normal Sali ne Flush) Status: Discontinued Start Date: 12/06/20 Stop Date: 12/06/20 10 Milliliter Intravenous Flush Mold Maker Helper as needed other (see comment) for 30 Days. Refills: 0. topiramate (Topamax 25 mg or al tablet) Status: Discontinued Start Date: 12/06/20 Stop Date: 12/06/20 2 tab(s) Oral every day. Results 12/06/20 WBC 9.1 x10^3/mcL (Normal is 4.5-1 1.0 x10^3/mcL) RBC 4.94 x10^6/mcL (Normal is 3.80- 5.30 x10^6/mcL) Hgb 14.5 gm/dL (Normal is 11.4- 16.0 gm/dL) Hct 43.9 % (Normal is 35.0- 47.0 %) Platelet 318 x10^3/mcL (Normal is 150-4 40 x10^3/mcL) MCV 89 fL (Normal is 81-10 1 fL) MCH 29 gm/dL (Normal is 26-34 gm/dL) MCHC 33.0 gm/dL (Normal is 32.0- 36.0 gm/dL) RDW 13.7 gm/dL (%) (Normal is 11.6- 14.6 gm/dL (%)) MPV 7.6 fL (Normal is 9.4-1 2.4 fL) Auto Neut Percent 73.8 % (Normal is 35. 0-80.0 %) Auto Lymph Percent 17.7 % (Normal is 24 .0-44.0 %) Auto Preston Percent 5.9 % (Normal is 4.7 -12.5 %) Auto Eos Percent 2 % (Normal is 0-4 %) Auto Baso Percent 0.6 % (Normal is 0.0 -1.2 %) Neut Abs# 6.7 x10^3/mcL (Normal is 1.8-7 .7 x10^3/mcL) Lymph Abs# 1.6 x10^3/mcL (Normal is 1.0-4 .8 x10^3/mcL) Preston Abs# 0.5 x10^3/mcL (Normal is 0.2-0 .9 x10^3/mcL) Eos Abs# 0.2 x10^3/mcL (Normal is 0.0-0 .8 x10^3/mcL) Baso Abs# 0.1 x10^3/mcL (Normal is 0.0-0 .1 x10^3/mcL) Add Man Diff? No D-Dimer 504 ng/mL (Normal is 203-4 99 ng/mL) Glucose Lvl 163 mg/dL (Normal is 74-10 6 mg/dL) BUN 13 mg/dL (Normal is 7-20 mg/dL) Creatinine Lvl 0.87 mg/dL (Normal is 0.50- 1.00 mg/dL) Calcium Lvl 8.7 mg/dL (Normal is 8.4-1 0.3 mg/dL) Sodium Lvl 141 mmol/L (Normal is 137-1 45 mmol/L) Potassium Lvl 4.7 mmol/L (Normal is 3.5-5 .0 mmol/L) Chloride 106 mmol/L (Normal is 98-10 7 mmol/L) CO2 26 mmol/L (Normal is 22-32 mmol/L) AGAP 14 (Normal is 3-15) BUN/Creat Ratio 15 ratio (Normal is 10-20 ratio) eGFR AA >60 mL/min/1.73 m2 eGFR Non-AA >60 mL/min/1.73 m2 Alk Phos 75 unit/L (Normal is 46-11 6 unit/L) AST 16 unit/L (Normal is 15-37 unit/L) ALT 32 unit/L (Normal is 12-78 unit/L) Bili Total 0.40 mg/dL (Normal is 0.20- 1.00 mg/dL) Total Protein 7.0 gm/dL (Normal is 6.3-8 .2 gm/dL) Albumin Lvl 3.5 gm/dL (Normal is 3.5-5 .1 gm/dL) Globulin 4 gm/dL A/G Ratio 1 Lipase Lvl 65.0 unit/L (Normal is 73.0- 393.0 unit/L) Troponin <0.017 ng/mL (Normal is 0.017 -0.056 ng/mL) TSH 4.114 ulU/mL (Normal is 0.360 -3.740 ulU/mL) Immunizations pneumococcal, unspecified formulation Assessment and Plan Extracted from: Title:Chest Pain *ED Author:Charlene Lindo MD Date:12/06/20 Impression and Plan Diagnosis Chest pain of uncertain etiology ([id number]-CU R07.9, Discharge, Medical) Plan Condition: Improved. Disposition: Discharged: to home. Counseled: Patient, Family, Regarding diagnosis, Regarding diagnostic results, Regarding treatment plan, Patient indicated understanding of instructions. Future Appointments ?? Instructions Patient Education 12/06/2020 08:34:34 Exercise Stress Test Exercise Stress Test An exercise stress test is a test that is done to collect information about how your heart functions during exercise. The test is done while you are walking on a treadmill or using an exercise bike. The goal is to raise your heart rate and stress the heart. The heart is evaluated before, during, and after you exercise. An electrocardiogram (ECG) will be used to monitor the heart, and your bloodpressure will also be monitored. In some cases, nuclear scanning or an ultrasound of the heart (echocardiogram) will also be done to evaluate your heart. An exercise stress test is done to look for coronary artery disease (CAD). The test may also be done to: ??? Evaluate your limits of exercise during cardiac rehabilitation. ??? Check for high blood pressure during exercise. ??? Check how well you can exercise after such treatments as coronary stenting or new medicines. ??? Check for problems with blood flow to your arms and legs during exercise. If you have an abnormal test result, this may mean that you are not getting enough blood flow to your heart during exercise. More testing may be needed to understand why your test was not normal. Tell a health care provider about: ??? Any allergies you have. ??? All medicines you are taking, including vitamins, herbs, eye drops, creams, and iiml-hpc-ulaeslx medicines. ??? Any blood disorders you have. ??? Any surgeries you have had. ??? Any medical conditions you have. ??? Whether you are or may be . What are the risks? Generally, this is a safe procedure. However, problems may occur, including: ??? Pain or pressure in the following areas: ? Chest. ? Jaw or neck. ? Between your shoulder blades. ? Down your left arm. ??? Dizziness or lightheadedness. ??? Shortness of breath. ??? Increased or irregular heartbeats. ??? Nausea or vomiting. ??? Heart attack (rare). ??? Life-threatening abnormal heart rhythm (rare). What happens before the procedure? Follow instructions from your health care provider about eating or drinking restrictions. ? You may be told to avoid all forms of caffeine for 24 hours before the test. This includes coffee, tea (even decaffeinated tea), caffeinated sodas, chocolate, cocoa, and certain pain medicines. ??? Ask your health care provider about: ? Taking dpaj-qho-tqjbssn medicines, vitamins, herbs, and supplements. ? Changing or stopping your regular medicines. This is especially important if you are taking diabetes medicines or beta-neil medicines. ? If you have diabetes, ask how you are to take your insulin or pills. It is common to adjust your insulin dose the morning of the test. ? If you are taking beta-neil medicines, it is important to talk to your health care provider about these medicines well before the date of your test. Taking beta-neil medicines may interfere with the test. In some cases, these medicines may need to be changed or stopped 24 hours or more before the test. ? If you wear a nitroglycerin patch, it may need to be removed prior to the test. Ask your health care provider if the patch should be removed before the test. ??? If you use an inhaler for any breathing condition, bring it with you to the test. ??? Do not apply lotions, powders, creams, or oils on your chest prior to the test. ??? Wear loose-fitting clothes and comfortable walking shoes. ??? Do not use any products that contain nicotine or tobacco, such as cigarettes and e-cigarettes, for 4 hours before the test or as told by your health care provider. If you need help quitting, ask your health care provider. What happens during the procedure? Multiple electrodes will be attached to your chest. ??? Multiple wires will be attached to the electrodes. These will transfer the electrical impulses from your heart to the ECG machine. Your heart will be monitored both at rest and while exercising. ??? If you are also having an echocardiogram or nuclear scanning, images of your heart will be taken before and after you exercise. ??? A blood pressure cuff will be placed around your arm to measure your blood pressure throughout the test. You will feel it tighten and loosen throughout the test. ??? You will walk on a treadmill or use a stationary bike. If you cannot use these, you may be asked to turn a crank with your hands. ??? You will start at a slow pace or level on the exercise machine. The exercise difficulty will beslowly increased to raise your heart rate. In the case of a treadmill, the speed and incline will gradually be increased. ??? You may be asked to periodically breathe into a tube. This measures the gases you breathe out. ??? You will be asked how you are feeling throughout the test. You will be asked to rate your levelof exertion. ??? Tell the staff right away if you feel: ? Chest pain. ? Dizziness. ? Shortness of breath. ? Too fatigued to continue. ? Pain or aching in your legs or arms. ??? You will exercise until you have symptoms or until you reach a target heart rate. The test willalso be stopped if you have changes in your blood pressure or ECG readings, or if you develop an irregular heartbeat (arrhythmia). The procedure may vary among health care providers and hospitals. What happens after the procedure? You will sit down and recover from the exercise. Your blood pressure, heart rate, and ECG will be monitored until you recover. ??? You may return to your normal schedule, including diet, activities, and medicines, unless your health care provider tells you otherwise. ??? It is up to you to get your test results. Ask your health care provider, or the department thatis doing the test, when your results will be ready. Summary ??? An exercise stress test is a test that is done to collect information about how your heart functions during exercise. ??? This test is done to look for coronary artery disease (CAD). ??? During this test, you will walk on a treadmill or use an exercise bike to raise your heart rate. ??? It is important to follow instructions from your health care provider about eating and drinkingrestrictions before the test. This may include avoiding caffeine and certain medicines before the test. This information is not intended to replace advice given to you by your health care provider. Make sure you discuss any questions you have with your health care provider. Document Revised: 01/08/2018 Document Reviewed: 06/11/2017 [email or web address] Patient Education ?? 2020 [email or web address] Nonspecific Chest Pain, Adult Nonspecific Chest Pain, Adult Chest pain can be caused by many different conditions. It can be caused by a condition that is life-threatening and requires treatment right away. It can also be caused by something that is not life-threatening. If you have chest pain, it can be hard to know the difference, so it is important to get help right away to make sure that you do not have a serious condition. Some life-threatening causes of chest pain include: ??? Heart attack. ??? A tear in the body's main blood vessel (aortic dissection). ??? Inflammation around your heart (pericarditis). ??? A problem in the lungs, such as a blood clot (pulmonary embolism) or a collapsed lung (pneumothorax). Some non life-threatening causes of chest pain include: ??? Heartburn. ??? Anxiety or stress. ??? Damage to the bones, muscles, and cartilage that make up your chest wall. ??? Pneumonia or bronchitis. ??? Shingles infection (varicella-zoster virus). Chest pain can feel like: ??? Pain or discomfort on the surface of your chest or deep in your chest. ??? Crushing, pressure, aching, or squeezing pain. ??? Burning or tingling. ??? Dull or sharp pain that is worse when you move, cough, or take a deep breath. ??? Pain or discomfort that is also felt in your back, neck, jaw, shoulder, or arm, or pain that spreads to any of these areas. Your chest pain may come and go. It may also be constant. Your health care provider will do lab tests and other studies to find the cause of your pain. Treatment will depend on the cause of your chest pain. Follow these instructions at home: Medicines ??? Take lhko-xyt-xspelme and prescription medicines only as told by your health care provider. ??? If you were prescribed an antibiotic, take it as told by your health care provider. Do not stoptaking the antibiotic even if you start to feel better. Lifestyle ??? Rest as directed by your health care provider. ??? Do not use any products that contain nicotine or tobacco, such as cigarettes and e-cigarettes. If you need help quitting, ask your health care provider. ??? Do not drink alcohol. ??? Make healthy lifestyle choices as recommended. These may include: ? Getting regular exercise. Ask your health care provider to suggest some activities that are safe for you. ? Eating a heart-healthy diet. This includes plenty of fresh fruits and vegetables, whole grains, low-fat (lean) protein, and low-fat dairy products. A dietitian can help you find healthy eating options. ? Maintaining a healthy weight. ? Managing any other health conditions you have, such as high blood pressure (hypertension) or diabetes. ? Reducing stress, such as with yoga or relaxation techniques. General instructions ??? Pay attention to any changes in your symptoms. Tell your health care provider about them or anynew symptoms. ??? Avoid any activities that cause chest pain. ??? Keep all follow-up visits as told by your health care provider. This is important. This includes visits for any further testing if your chest pain does not go away. Contact a health care provider if: ??? Your chest pain does not go away. ??? You feel depressed. ??? You have a fever. Get help right away if: ??? Your chest pain gets worse. ??? You have a cough that gets worse, or you cough up blood. ??? You have severe pain in your abdomen. ??? You faint. ??? You have sudden, unexplained chest discomfort. ??? You have sudden, unexplained discomfort in your arms, back, neck, or jaw. ??? You have shortness of breath at any time. ??? You suddenly start to sweat, or your skin gets clammy. ??? You feel nausea or you vomit. ??? You suddenly feel lightheaded or dizzy. ??? You have severe weakness, or unexplained weakness or fatigue. ??? Your heart begins to beat quickly, or it feels like it is skipping beats. These symptoms may represent a serious problem that is an emergency. Do not wait to see if the symptoms will go away. Get medical help right away. Call your local emergency services (911 in the [place] Do not drive yourself to the hospital. Summary ??? Chest pain can be caused by a condition that is serious and requires urgent treatment. It may also be caused by something that is not life-threatening. ??? If you have chest pain, it is very important to see your health care provider. Your health careprovider may do lab tests and other studies to find the cause of your pain. ??? Follow your health care provider's instructions on taking medicines, making lifestyle changes, and getting emergency treatment if symptoms become worse. ??? Keep all follow-up visits as told by your health care provider. This includes visits for any further testing if your chest pain does not go away. This information is not intended to replace advice given to you by your health care provider. Make sure you discuss any questions you have with your health care provider. Document Revised: 10/08/2018 Document Reviewed: 10/08/2018 [email or web address] Patient Education ?? 2020 [employer] Follow Up Care 12/06/2020 08:34:34 With:Clyde Jaquez Address: [address] [place] [id number] Business (1) When:Unknown Comments:Please monitor symptoms and return for any concerns Keep your scheduled appointment on 12/11/2020 as scheduled Continue your usual medications as directed
--- OUTSIDE RECORDS SUMMARY | 2022-07-30 09:35 | XMS_ITS | Continuity of Care Document ---
Author Name Unknown Organization [facility] Address [address] [place] [address]- Care Team Providers Care Gas Plumbing Inspector Name Role Phone Clyde Jaquez Primary Care Physician Encounter 09/07/19 - 09/07/19 [facility] [address] [place] [address]- [facility] Discharge Disposition: Discharged to Home or Self Care Attending Physician: Clyde Jaquez MD Allergies, Adverse Reactions, Alerts Substance Reaction Severity Status penicillins Active Medications aspirin 81 mg, PO, Daily, Each, 0 Refill(s) Start Date: 05/26/14 Status: Ordered atorvastatin 40 mg oral tablet Take 1 Tab, PO, Daily, # 90 Tab, 0 Refill(s), Pharmacy: [facility] Start Date: 08/26/19 Status: Ordered CONTOUR COLTEN NEXT CONTOUR COLTEN NEXT, testing 4-5, Each, 0 Start Date: 08/26/19 Status: Ordered fluconazole 150 mg oral tablet Take 1 Tab, PO, Once, take one tablet once a week for yeast infection while taking Jardiance, # 30 Tab, 0 Refill(s), Pharmacy: [facility] Start Date: 09/07/19 Status: Ordered Jardiance 10 mg oral tablet Take 1 Tab, PO, QAM, # 90 Each, 11 Refill(s), Pharmacy: [facility] Start Date: 08/26/19 Status: Ordered Linzess 72 mcg oral capsule Take 1 Cap, PO, Daily, Each, 0 Refill(s) Start Date: 08/26/19 Status: Ordered lisinopril 20 mg oral tablet Take 1 Tab, PO, Daily, # 90 Each, 11 Refill(s), Pharmacy: [facility] Start Date: 08/26/19 Status: Ordered NovoLOG 100 units/mL injectable solution See Instructions, Subcut ac via pump max75 units per day, # 3 Each, 11 Refill(s), Pharmacy: [facility] Start Date: 08/26/19 Status: Ordered phentermine 37.5 mg, PO, Daily, Each, 0 Refill(s) Start Date: 05/26/14 Status: Ordered Topamax 50 mg oral tablet Take 1 Tab, PO, Daily, # 30 Each, 2 Refill(s), Pharmacy: [facility], 1 Tab PO Daily Start Date: 09/07/19 Status: Ordered Procedures Procedure Date Related Diagnosis Body Site Status Hysterectomy 1 Completed 1partial Social History Social History Type Response Sex
--- OUTSIDE RECORDS SUMMARY | 2022-07-30 09:35 | XMS_ITS | Continuity of Care Document ---
Author Name Unknown Organization [facility] Address [address] [place] [address]- Care Team Providers Care Theoretical Physicist Name Role Phone Physician, PCP Unknown Primary Care Physician Un available Encounter 11/14/21 - 11/14/21 [facility] [address] [place] [address]- Discharge Disposition: Discharged to Home or Self Care Attending Physician: Bishop KIRKLAND, Francine Moralez Allergies, Adverse Reactions, Alerts Substance Reaction Severity [...] Daily, # 90 Tab, 3 Refill(s), [facility] Start Date: 12/18/20 Status: Ordered CONTOUR COLTEN NEXT CONTOUR COLTEN NEXT, testing 4-5, Each, 0 Start Date: 08/26/19 Status: Ordered fluconazole 150 mg oral tablet Take 1 Tab, PO, Once, take one tablet once daily as needed for yeast infection while taking Jardiance 5 days in succession Max 10 days/month, # 30 Tab, 11 Refill(s), Pharmacy: [facility], 173, cm, 03/19/21 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, Height, 99.7, kg, 03/19/21 6:48:00 RENEWABLE ENERGY TRADER, Weight Start Date: 06/27/21 Status: Ordered Linzess 72 mcg oral capsule Take 1 Cap, PO, Daily, Each, 0 Refill(s) Start Date: 08/26/19 Status: Ordered lisinopril 20 mg oral tablet Take 1 Tab, PO, Daily, # 90 Each, 3 Refill(s), Pharmacy: [facility] Start Date: 10/02/20 Status: Ordered NovoLOG 100 units/mL injectable solution See Instructions, Subcut ac via pump max 75 units per day, # 3 Each, 11 Refill(s), Pharmacy: [facility], 173, cm, 03/19/21 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 wrist 4partial Results Orders for Microbiology Reports Name Date Culture Urine (URINE CLT) 11/14/21 Microbiology Reports TEST:Culture Urine STATUS:Auth (Verified) BODY SITE: SOURCE:Urine Midstream COLLECTED DATE/TIME:7/27/22 9:06 AM Report Status FINAL [id number] ORGANISM:No Growth to Date Social History Social History Type Response Smoking Status Never smoked Sex Medical Equipment Implanted Date:03/19/21Target Site:Unknown Description Quantity MRI [employer] Model DEVICE VASC CLOSURE MYNX [id number] [id number] 1 CARDINAL HLTH- ACCES S CLOSURE Unknown JOEL:{[id number] Assigning Authority:FDA
--- OUTSIDE RECORDS SUMMARY | 2022-07-30 09:35 | XMS_ITS ---
Author Name Unknown Organization [facility] Address Unknown Care Team Providers Care Die Mechanic Name Role Phone JaquezClyde Primary Care Physician [phone] Encounter TRIN_HN Date(s): 12/19/20 - 12/19/20 [facility] [address] [place] [address] Encounter Diagnosis Encounter for screening mammogram for malignant neoplasm of breast(Final) - Ovarian dysfunction, unspecified(Final) - Discharge Disposition: Home or Self Care Attending Physician: FAVIOLA MACEDO Admitting Physician: FAVIOLA MACEDO Reason for Visit screening Allergies, Adverse Reactions, [...]
--- OUTSIDE RECORDS SUMMARY | 2022-07-30 09:35 | XMS_ITS | Continuity of Care Document ---
Author Name Unknown Organization [facility] Address [address] [place] [address]- Care Team Providers Care Mortgage Protection Sales Name Role Phone Physician, PCP Unknown Primary Care Physician Un available Encounter 02/08/22 - 02/08/22 [facility] [address] [place] [address]- Discharge Disposition: Discharged to Home or Self [...] Tab, 3 Refill(s), Pharmacy: [facility] Start Date: 12/18/20 Status: Ordered CONTOUR COLTEN NEXT CONTOUR COLTEN NEXT, testing 4-5, Each, 0 Start Date: 08/26/19 Status: Ordered fluconazole 150 mg oral tablet Take 1 Tab, PO, Once, take one tablet once daily as needed for yeast infection while taking Jardiance 5 days in succession Max 10 days/month, # 30 Tab, 11 Refill(s), Pharmacy: 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 Start Date: 10/02/20 Status: Ordered NovoLOG 100 units/mL injectable solution See Instructions, Subcut ac via pump max 75 units per day, # 3 Each, 11 Refill(s), Pharmacy: 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 wrist 4partial Results Laboratory List Name Date Basic Metabolic Panel (BASIC METABOLIC P NL) 02/08/22 Sodium Level Most recent to oldest [Reference Range]: 1 Sodium Level [133-146 mMol/L] 137 mMol/L (02/08/22 9:54 AM) Potassium Level Most recent to oldest [Reference Range]: 1 Potassium Level [3.5-5.1 mMol/L] 4.6 mMo l/L (02/08/22 9:54 AM) Chloride Level Most recent to oldest [Reference Range]: 1 Chloride Level [97-109 mMol/L] 105 mMol/ L (02/08/22 9:54 AM) Carbon Dioxide Level Most recent to oldest [Reference Range]: 1 Carbon Dioxide Level [20-34 mMol/L] 24 m Mol/L (02/08/22 9:54 AM) BUN Most recent to oldest [Reference Range]: 1 BUN [8-22 mg/dL] 13 mg/dL (02/08/22 9:54 AM) Creatinine Most recent to oldest [Reference Range]: 1 Creatinine [0.6-1.2 mg/dL] 0.77 mg/dL (02/08/22 9:54 AM) Calcium Total Most recent to oldest [Reference Range]: 1 Calcium Total [8.6-10.3 mg/dL] 9.3 mg/dL (02/08/22 9:54 AM) Glucose Level Most recent to oldest [Reference Range]: 1 Glucose Level [70-110 mg/dL] 100 mg/dL (02/08/22 9:54 AM) Social History Social History Type Response Smoking Status Never smoked Sex Implantable Device List Procedure Provider Procedure Date Device Type Site Implantation Unknown 03/19/21 Non Biological Unknown Device Identifier Serial Number Lot or Batch Number Manufacturing Date Expiration Date Distinct Identification Code MRI Safety Implantable Status Assigning Authority [id number] Unknown [id number] Unknown 01/18/22 Unknown Unknown Active GS1 Care Team Personnel Name: Physician, PCP Unknown
--- OUTSIDE RECORDS SUMMARY | 2022-07-30 09:35 | XMS_ITS | Continuity of Care Document ---
Author Name Unknown Organization [facility] Address [address] [place] [address]- Care Team Providers Care Hotel Lobby Concierge Name Role Phone Jonelle Stanford Primary Care Physician Encounter 03/11/22 - 03/12/22 [place] [address] [place] [address]- Discharge Disposition: Discharged to Home or Self Care Attending Physician: Jonelle Stanford NP Allergies, Adverse Reactions, Alerts Substance Reaction Severity [...] Daily, # 90 Tab, 3 Refill(s), [facility] Start Date: 12/18/20 Status: Ordered CONTOUR COLTEN NEXT CONTOUR COLTEN NEXT, testing 4-5, Each, 0 Start Date: 08/26/19 Status: Ordered fluconazole 150 mg oral tablet Take 1 Tab, PO, Once, take one tablet once daily as needed for yeast infection while taking Jardiance 5 days in succession Max 10 days/month, # 30 Tab, 11 Refill(s), Pharmacy: [facility], 173, cm, 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
--- OUTSIDE RECORDS SUMMARY | 2022-07-30 09:35 | XMS_ITS | Continuity of Care Document ---
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
== END 2022-07-30 09:26 | disposition home or self-care (01) ==
PROVIDERS: Visit Provider Family Medicine
DX: M54.16 Radiculopathy, lumbar region (principal); M48.062 Spinal stenosis, lumbar region with neurogenic claudication
CPT/HCPCS: 64483; J1100; Q9966